=== PATIENT | male | born 1950 | race Caucasian/White ===

== ENCOUNTER 2020-01-03 09:13 | Emergency (ER) | payer MEDICARE, OTHER ==
[~2020-01-03] VITALS: Ht 177.8 cm; Wt 90.7 kg
[2020-01-03] MEDS ORDERED: JANTOVEN1 MG PO (09:24)
[2020-01-03] MEDS ORDERED: TOPROL XL50 MG PO (09:24)
[2020-01-03] MEDS ORDERED: LUPRON (09:24)
[2020-01-03] MEDS ORDERED: KEFLEX500 M1 PO (10:19)
[2020-01-03 10:55] VITALS: BP 139/86
== END 2020-01-03 10:56 | disposition home or self-care (01) ==
LOC: M.ERS 09:13
DX: S01.82XA Laceration with foreign body of other part of head, initial encounter (principal); Z88.5 Allergy status to narcotic agent; X58.XXXA Exposure to other specified factors, initial encounter; Y93.89 Activity, other specified; Y92.89 Other specified places as the place of occurrence of the external cause; Y99.8 Other external cause status